=== PATIENT | female | born 1970 | race Two or more races ===

== ENCOUNTER 2017-10-06 16:43 | Emergency (ER) | payer SELFPAY ==
[~2017-10-06] VITALS: Ht 177.8 cm; Wt 89.8 kg
[~2017-10-06 16:43] MED LIST: AMOXICILLIN 50500 MG PO; BACTRIM DS 8001 TAB PO; CIPRO 500MG TA500 MG PO; NOMEDS; PRENATAL1 TA1 PO
--- OUTSIDE RECORDS SUMMARY | 2017-10-06 17:06 | External Medical Summary Rpt | CCD ---
Author Author , FABIEN TRAN Address Unknown Phone [email or web address] Immunization Name Date Rout CVX Reac Dose Comm Prov Is Faci e tion ent ider Refu lity Give sed n Tdap 04-1 115 999 Hist H149 No H149 , 6-20 oric Adso 13 al rbed Info rmat ion - Sour ce Unsp ecif ied
--- OUTSIDE RECORDS SUMMARY | 2017-10-06 17:06 | External Medical Summary Rpt | CCD ---
Author Author , FABIEN TRAN Address Unknown Phone [email or web address] Immunization Name Date Rout CVX Reac Dose Comm Prov Is Faci e tion ent ider Refu lity Give sed n Tdap 04-1 115 999 Hist H149 No H149 , 6-20 oric Adso 13 al rbed Info rmat ion - Sour ce Unsp ecif ied
--- OUTSIDE RECORDS SUMMARY | 2017-10-06 17:07 | External Medical Summary Rpt ---
Author Author MARC Lynn, [employer] Organization [employer] Address Unknown Phone Unavailable Results CHLAMYDIA AND GONORRHEA TESTING Observa Value Referen Units Interpr Notes Date tion ce etation Range COLLECT ALLAN/GENP No No No No Sep 09 OR ROBE informa informa informa informa 2016 tion in tion in tion in tion in 9:00 AM source source source source data data data data ETHNICI HISPANI No No No No Sep 09 TY C WHITE informa informa informa informa 2016 tion in tion in tion in tion in 9:00 AM source source source source data data data data KIT 11-30-2 No No No No Sep 09 EXPIRAT 016 informa informa informa informa 2016 ION tion in tion in tion in tion in 9:00 AM DATE source source source source data data data data SYMPTOM YES No No No No Sep 09 S informa informa informa informa 2016 tion in tion in tion in tion in 9:00 AM source source source source data data data data REASON CANCER No No No No Sep 09 FOR informa informa informa informa 2016 REQUEST tion in tion in tion in tion in 9:00 AM source source source source data data data data SPECIME FEMALE No No No No Sep 09 N ENDOCER informa informa informa informa 2016 SOURCE VICAL tion in tion in tion in tion in 9:00 AM source source source source data data data data PREGNAN NO No No No No Sep 09 T informa informa informa informa 2016 tion in tion in tion in tion in 9:00 AM source source source source data data data data CHART N/A No No No No Sep 09 NUMBER informa informa informa informa 2016 tion in tion in tion in tion in 9:00 AM source source source source data data data data Chlamyd NEGATIV No No No NEGATIV Sep 09 ia E informa informa informa E 2016 trachom tion in tion in tion in RESULT= 9:00 AM atis source source source WITHIN rRNA data data data NORMAL [Presen ce] in LIMITSP Unspeci OSITIVE fied specime RESULT= n by Probe & ABNORMA target LEQUIVO HELGA amplifi RESULT= cation method INDETER MINATEU NSATISF ACTORY RESULT= INVALID Neisser NEGATIV No No No NEGATIV Sep 09 ia E informa informa informa E 2016 gonorrh tion in tion in tion in RESULT= 9:00 AM oeae source source source WITHIN rRNA data data data NORMAL [Presen ce] in LIMITSP Unspeci OSITIVE fied specime RESULT= n by Probe & ABNORMA target LEQUIVO HELGA amplifi RESULT= cation method INDETER MINATEU NSATISF ACTORY RESULT= INVALID THE APTIMA COMBO 2 ASSAY IS NOT INTENDE D FOR THE EVALUAT ION OF SUSPECT EDSEXUA L ABUSE OR FOR OTHER MEDICO- LEGAL INDICAT IONS. FOR THOSE PATIENT S FORWHOM A FALSE POSITIV E RESULT MAY HAVE ADVERSE PSYCHO- SOCIAL IMPACT, [facility].\.br \This report contain s patient informa tion that must be protect ed in accorda nce with the Health Insuran ce Portabi lity and Account ability Act. CHLAMYDIA AND GONORRHEA TESTING Observa Value Referen Units Interpr Notes Date tion ce etation Range COLLECT ALLAN/GENP No No No No Sep 09 OR ROBE informa informa informa informa 2016 tion in tion in tion in tion in 9:00 AM source source source source data data data data ETHNICI HISPANI No No No No Sep 09 TY C WHITE informa informa informa informa 2016 tion in tion in tion in tion in 9:00 AM source source source source data data data data KIT 11-30-2 No No No No Sep 09 EXPIRAT 016 informa informa informa informa 2016 ION tion in tion in tion in tion in 9:00 AM DATE source source source source data data data data SYMPTOM YES No No No No Sep 09 S informa informa informa informa 2016 tion in tion in tion in tion in 9:00 AM source source source source data data data data REASON CANCER No No No No Sep 09 FOR informa informa informa informa 2016 REQUEST tion in tion in tion in tion in 9:00 AM source source source source data data data data SPECIME FEMALE No No No No Sep 09 N ENDOCER informa informa informa informa 2016 SOURCE VICAL tion in tion in tion in tion in 9:00 AM source source source source data data data data PREGNAN NO No No No No Sep 09 T informa informa informa informa 2016 tion in tion in tion in tion in 9:00 AM source source source source data data data data CHART N/A No No No No Sep 09 NUMBER informa informa informa informa 2016 tion in tion in tion in tion in 9:00 AM source source source source data data data data Chlamyd Pending No No No No Sep 09 ia informa informa informa informa 2016 trachom tion in tion in tion in tion in 9:00 AM atis source source source source rRNA data data data data [Presen ce] in Unspeci fied specime n by Probe & target amplifi cation method Neisser Pending No No No \.br\Sep 09 ia informa informa informa is 2016 gonorrh tion in tion in tion in report 9:00 AM oeae source source source contain rRNA data data data s [Presen patient ce] in Unspeci informa fied tion specime that n by must be Probe & target protect ed in amplifi accorda cation nce method with the Health Insuran ce Portabi lity and Account ability Act. CHLAMYDIA AND GONORRHEA TESTING Observa Value Referen Units Interpr Notes Date tion ce etation Range COLLECT NA No No No No March 23 OR informa informa informa informa 2011 tion in tion in tion in tion in 10:50 source source source source AM data data data data ETHNICI HISPANI No No No No March 23 TY C WHITE informa informa informa informa 2012 tion in tion in tion in tion in 10:50 source source source source AM data data data data KIT 7--12 No No No No March 23 EXPIRAT informa informa informa informa 2012 ION tion in tion in tion in tion in 10:50 DATE source source source source AM data data data data SYMPTOM NO No No No No March 23 S informa informa informa informa 2012 tion in tion in tion in tion in 10:50 source source source source AM data data data data REASON REVISIT No No No No March 23 FOR /ANNUAL informa informa informa informa 2012 REQUEST FAMILY tion in tion in tion in tion in 10:50 source source source source AM PLANNIN data data data data G VISIT SPECIME FEMALE No No No No March 23 N ENDOCER informa informa informa informa 2012 SOURCE VICAL tion in tion in tion in tion in 10:50 source source source source AM data data data data PREGNAN NO No No No No March 23 T informa informa informa informa 2012 tion in tion in tion in tion in 10:50 source source source source AM data data data data CHART NA No No No No March 23 NUMBER informa informa informa informa 2012 tion in tion in tion in tion in 10:50 source source source source AM data data data data Chlamyd NEGATIV No No No NEGATIV March 23 ia E informa informa informa E 2012 trachom tion in tion in tion in RESULT= 10:50 atis source source source WITHIN AM rRNA data data data NORMAL [Presen ce] in LIMITSP Unspeci OSITIVE fied specime RESULT= n by Probe & ABNORMA target LEQUIVO HELGA amplifi RESULT= cation method INDETER MINATEU NSATISF ACTORY RESULT= INVALID Neisser NEGATIV No No No NEGATIV March 23 ia E informa informa informa E 2012 gonorrh tion in tion in tion in RESULT= 10:50 oeae source source source WITHIN AM rRNA data data data NORMAL [Presen ce] in LIMITSP Unspeci OSITIVE fied specime RESULT= n by Probe & ABNORMA target LEQUIVO HELGA amplifi RESULT= cation method INDETER MINATEU NSATISF ACTORY RESULT= INVALID EFFECTI VE NOVEMBE R [id number]: THE APTIMA COMBO 2 NUCLEIC ACIDAMP LIFICAT ION ASSAY IS NOT INTENDE D FOR THE EVALUAT ION OFSUSPE CTED SEXUAL ABUSE OR FOR OTHER MEDICO- LEGAL INDICAT IONS.FA LSE POSITIV E RESULTS ARE POSSIBL E.\.br\ This report contain s patient informa tion that must be protect ed in sed[place]a nce with the Health Insuran ce Portabi lity and Account ability Act. CHLAMYDIA AND GONORRHEA TESTING Observa Value Referen Units Interpr Notes Date tion ce etation Range COLLECT NA No No No No March 23 OR informa informa informa informa 2012 tion in tion in tion in tion in 10:50 source source source source AM data data data data ETHNICI HISPANI No No No No March 23 TY C WHITE informa informa informa informa 2012 tion in tion in tion in tion in 10:50 source source source source AM data data data data KIT 7-31-12 No No No No March 23 EXPIRAT informa informa informa informa 2012 ION tion in tion in tion in tion in 10:50 DATE source source source source AM data data data data SYMPTOM NO No No No No March 23 S informa informa informa informa 2012 tion in tion in tion in tion in 10:50 source source source source AM data data data data REASON REVISIT No No No No March 23 FOR /ANNUAL informa informa informa informa 2012 REQUEST FAMILY tion in tion in tion in tion in 10:50 source source source source AM PLANNIN data data data data G VISIT SPECIME FEMALE No No No No March 23 N ENDOCER informa informa informa informa 2012 SOURCE VICAL tion in tion in tion in tion in 10:50 source source source source AM data data data data PREGNAN NO No No No No March 23 T informa informa informa informa 2012 tion in tion in tion in tion in 10:50 source source source source AM data data data data CHART NA No No No No March 23 NUMBER informa informa informa informa 2012 tion in tion in tion in tion in 10:50 source source source source AM data data data data Chlamyd Pending No No No No March 23 ia informa informa informa informa 2012 trachom tion in tion in tion in tion in 10:50 atis source source source source AM rRNA data data data data [Presen ce] in Unspeci fied specime n by Probe & target amplifi cation method Neisser Pending No No No \.br\March 23 ia informa informa informa is 2012 gonorrh tion in tion in tion in report 10:50 oeae source source source contain AM rRNA data data data s [Presen patient ce] in Unspeci informa fied tion specime that n by must be Probe & target protect ed in amplifi accorda cation nce method with the Health Insuran ce Portabi lity and Account ability Act. CHLAMYDIA AND GONORRHEA TESTING Observa Value Referen Units Interpr Notes Date tion ce etation Range COLLECT NA No No No No Dec 09 OR informa informa informa informa 2012 tion in tion in tion in tion in 1:11 PM source source source source data data data data ETHNICI HISPANI No No No No Dec 09 TY C WHITE informa informa informa informa 2012 tion in tion in tion in tion in 1:11 PM source source source source data data data data KIT 3-31-12 No No No No Dec 09 EXPIRAT informa informa informa informa 2012 ION tion in tion in tion in tion in 1:11 PM DATE source source source source data data data data SYMPTOM NO No No No No Dec 09 S informa informa informa informa 2012 tion in tion in tion in tion in 1:11 PM source source source source data data data data REASON REVISIT No No No No Dec 09 FOR /ANNUAL informa informa informa informa 2012 REQUEST FAMILY tion in tion in tion in tion in 1:11 PM source source source source PLANNIN data data data data G VISIT SPECIME FEMALE No No No No Dec 09 N ENDOCER informa informa informa informa 2012 SOURCE VICAL tion in tion in tion in tion in 1:11 PM source source source source data data data data PREGNAN NO No No No No Dec 09 T informa informa informa informa 2012 tion in tion in tion in tion in 1:11 PM source source source source data data data data CHART NA No No No No Dec 09 NUMBER informa informa informa informa 2012 tion in tion in tion in tion in 1:11 PM source source source source data data data data Chlamyd NEGATIV No No No NEGATIV Dec 09 ia E informa informa informa E 2012 trachom tion in tion in tion in RESULT= 1:11 PM atis source source source WITHIN rRNA data data data NORMAL [Presen ce] in LIMITSP Unspeci OSITIVE fied specime RESULT= n by Probe & ABNORMA target LEQUIVO HELGA amplifi RESULT= cation method INDETER MINATEU NSATISF ACTORY RESULT= INVALID Neisser NEGATIV No No No NEGATIV Dec 09 ia E informa informa informa E 2011 gonorrh tion in tion in tion in RESULT= 1:11 PM oeae source source source WITHIN rRNA data data data NORMAL [Presen ce] in LIMITSP Unspeci OSITIVE fied specime RESULT= n by Probe & ABNORMA target LEQUIVO HELGA amplifi RESULT= cation method INDETER MINATEU NSATISF ACTORY RESULT= INVALID EFFECTI VE NOVEMBE R 2009: THE APTIMA COMBO 2 NUCLEIC ACIDAMP LIFICAT ION ASSAY IS NOT INTENDE D FOR THE EVALUAT ION OFSUSPE CTED SEXUAL ABUSE OR FOR OTHER MEDICO- LEGAL INDICAT IONS.FA LSE POSITIV E RESULTS ARE POSSIBL E.\.br\ This report contain s patient informa tion that must be protect ed in accorda nce with the Health Insuran ce Portabi lity and Account ability Act. CHLAMYDIA AND GONORRHEA TESTING Observa Value Referen Units Interpr Notes Date tion ce etation Range COLLECT NA No No No No Dec 09 OR informa informa informa informa 2011 tion in tion in tion in tion in 1:11 PM source source source source data data data data ETHNICI HISPANI No No No No Dec 09 TY C WHITE informa informa informa informa 2012 tion in tion in tion in tion in 1:11 PM source source source source data data data data KIT 3-31-12 No No No No Dec 09 EXPIRAT informa informa informa informa 2012 ION tion in tion in tion in tion in 1:11 PM DATE source source source source data data data data SYMPTOM NO No No No No Dec 09 S informa informa informa informa 2012 tion in tion in tion in tion in 1:11 PM source source source source data data data data REASON REVISIT No No No No Dec 09 FOR /ANNUAL informa informa informa informa 2012 REQUEST FAMILY tion in tion in tion in tion in 1:11 PM source source source source PLANNIN data data data data G VISIT SPECIME FEMALE No No No No Dec 09 N ENDOCER informa informa informa informa 2012 SOURCE VICAL tion in tion in tion in tion in 1:11 PM source source source source data data data data PREGNAN NO No No No No Dec 09 T informa informa informa informa 2012 tion in tion in tion in tion in 1:11 PM source source source source data data data data CHART NA No No No No Dec 09 NUMBER informa informa informa informa 2012 tion in tion in tion in tion in 1:11 PM source source source source data data data data Chlamyd Pending No No No No Dec 09 ia informa informa informa informa 2012 trachom tion in tion in tion in tion in 1:11 PM atis source source source source rRNA data data data data [Presen ce] in Unspeci fied specime n by Probe & target amplifi cation method Neisser Pending No No No \.br\Dec 09 ia informa informa informa is 2012 gonorrh tion in tion in tion in report 1:11 PM oeae source source source contain rRNA data data data s [Presen patient ce] in Unspeci informa fied tion specime that n by must be Probe & target protect ed in amplifi accorda cation nce method with the Health Insuran ce Portabi lity and Account ability Act.
--- OUTSIDE RECORDS SUMMARY | 2017-10-06 17:07 | External Medical Summary Rpt ---
[...] MAY HAVE ADVERSE PSYCHO- SOCIAL IMPACT, [facility] NG.\.br \This report contain s [...] tion that must be protect ed in ortleya nce with the Health Insuran ce Portabi [...]
--- NOTE | 2017-10-06 17:20 | Urgent Treatment Center Report ---
History of Present Issue Visit Reason Pt arrived:Walked Presenting Problem:LEFT SIDE PAIN THAT HAS BEEN ONGOING FOR MONTHS. PAIN WITH URINATION Location if Accident: Onset of symptoms date/time:/ or onset unknown for:MEDICAL HX UNKNOWN Have you (or family members/close friends) recently traveled outside the [place]? N If Yes, where/when: Have you had exposure to infectious disease within the past month? TB? Other? Specify: Patient is , with limited [place]ian state that she has been having problems on and off for several months that has come and gone and also now having pain with urination State that pain is worse right now. Pain is in lower abdomen on left side and radiates up abdomen into back area States that pain has been on and off for about 3-4 months per her . State that today she decided to come in and get checked ALLERGIES Coded Allergies: No Known Allergies (08/15/16) Home Medications Active Scripts Ciprofloxacin HCl (Cipro 500MG TAB) 500 MG PO BID #14 TAB Prov: 08/15/16 Reported Medications No Home Medications (NO HOME MEDICATIONS) History Medical History General CAD? No Angina: No PR: No Hypertension? No Hyperlipidemia? Yes CHF? No DVT? No PE? No COPD? No Asthma? No Anemia? No GERD? No Gastric ulcers? No GI Bleed? No Hernia? No Thyroid Problems? No Hypothyroidism? No CVA? No Seizures? No Diabetes? No Renal Insuffiency? No UTI? No Stones? No BPH? No GB Disease: No Nephritic Syndrome? No Asplenia? No Hepatitis? No Sickle Cell Disease? No Arthritis? No Migraines? No Cataracts? No Glaucoma? No MRSA? No HIV? No TB? No Anxiety? No Depression? No Cancer? No Immunization HX DT/Tetanus UNKNOWN Surgical Hx Previous Surgery?Y Family History Family HX Diabetes No CAD No Hypertension No Hyperlipidemia No Cancer No TB No Social History Smoking Hx Smoker: Never Smoker Tobacco: No Alcohol Alcohol: No Review of Systems All Other Systems Reviewed and Negative Gastrointestinal abdominal pain, denies diarrhea, denies nausea, denies vomiting Genitourinary dysuria, pain. Physical Exam Vital Signs Vital Signs Date Time Temp Pulse Resp B/P Pulse O2 O2 Flow FiO2 Ox Delivery Rate 10/06 1652 98.5 78 18 156/83 98 10/06 1648 98.5 78 18 156/83 98 General Appearance normal appearance, WD/WN, no apparent distress Ear, Nose, Throat hearing grossly normal, normal ENT inspection Respiratory Status Yes: trachea midline, chest symmetrical, non tender chest. No: respiratory distress. Lung Sounds bilateral: normal breath sounds, lungs clear. Cardiovascular normal exam, regular rate/rhythm, no peripheral edema, no gallop Gastrointestinal normal bowel sounds, normal exam, non tender, soft, no guarding , no rebound Back normal inspection, no CVA tenderness, no vertebral tenderness, bowel/ bladder continent, gait normal Neurologic alert, normal exam, oriented x 3 Medical Decision Making LABS/Meds/Orders Pt receiving controlled substance in ED? No Results/Orders Laboratory Tests 10/06/17 1725: Urine Color YELLOW, Urine Appearance Clear, Urine pH 6.0, Ur Specific [place] 1.010, Urine Protein NEGATIVE, Urine Ketones NEGATIVE, Urine Blood NEGATIVE, Urine Nitrate NEGATIVE, Urine Bilirubin NEGATIVE, Urine Urobilinogen 0.2, Ur Leukocyte Esterase NEGATIVE, Urine Glucose NEGATIVE Orders Procedure Date/time Status [facility] URINE DIPSTICK 10/06 172 Complete Progress [facility] Progress Notes Comment Patient complaining of pain in her lower abdominal area. Patient states that pain is constant in lower abdomen, Urine test completed and in chart, Patient being transfered to ER for further evaluation and treatment of abdominal pain. Report called and patient placed in room 11. Departure Departure Time of Disposition 173 Disposition Still a Patient Clinical Impression Primary Impression: Abdominal pain Qualifiers: Abdominal location: left lower quadrant Qualified Code: R10.32 - Left lower quadrant pain Condition STABLE at 1736
--- NOTE | 2017-10-06 17:20 | Urgent Treatment Center Report ---
History of Present Issue Visit Reason Pt arrived:Walked Presenting Problem:LEFT SIDE PAIN THAT HAS BEEN ONGOING FOR MONTHS. PAIN WITH URINATION Location if Accident: Onset of symptoms date/time:/ or onset unknown for:MEDICAL HX UNKNOWN Have you (or family members/close friends) recently traveled outside the [place]? N If Yes, where/when: Have you had exposure to infectious disease within the past month? TB? Other? Specify: Patient is , with limited Italian state that she has been having problems on and off for several months that has come and gone and also now having pain with urination State that pain is worse right now. Pain is in lower abdomen on left side and radiates up abdomen into back area States that pain has been on and off for about 3-4 months per her . State that today she decided to come in and get checked ALLERGIES Coded Allergies: No Known Allergies (08/15/16) Home Medications Active Scripts Ciprofloxacin HCl (Cipro 500MG TAB) 500 MG PO BID #14 TAB Prov: 08/15/16 Reported Medications No Home Medications (NO HOME MEDICATIONS) History Medical History General CAD? No Angina: No NV: No Hypertension? No Hyperlipidemia? Yes CHF? No DVT? No PE? No COPD? No Asthma? No Anemia? No GERD? No Gastric ulcers? No GI Bleed? No Hernia? No Thyroid Problems? No Hypothyroidism? No CVA? No Seizures? No Diabetes? No Renal Insuffiency? No UTI? No Stones? No BPH? No GB Disease: No Nephritic Syndrome? No Asplenia? No Hepatitis? No Sickle Cell Disease? No Arthritis? No Migraines? No Cataracts? No Glaucoma? No MRSA? No HIV? No TB? No Anxiety? No Depression? No Cancer? No Immunization HX DT/Tetanus UNKNOWN Surgical Hx Previous Surgery?Y Family History Family HX Diabetes No CAD No Hypertension No Hyperlipidemia No Cancer No TB No Social History Smoking Hx Smoker: Never Smoker Tobacco: No Alcohol Alcohol: No Review of Systems All Other Systems Reviewed and Negative Gastrointestinal abdominal pain, denies diarrhea, denies nausea, denies vomiting Genitourinary dysuria, pain. Physical Exam Vital Signs Vital Signs Date Time Temp Pulse Resp B/P Pulse O2 O2 Flow FiO2 Ox Delivery Rate 10/06 1652 98.5 78 18 156/83 98 10/06 1648 98.5 78 18 156/83 98 General Appearance normal appearance, WD/WN, no apparent distress Ear, Nose, Throat hearing grossly normal, normal ENT inspection Respiratory Status Yes: trachea midline, chest symmetrical, non tender chest. No: respiratory distress. Lung Sounds bilateral: normal breath sounds, lungs clear. Cardiovascular normal exam, regular rate/rhythm, no peripheral edema, no gallop Gastrointestinal normal bowel sounds, normal exam, non tender, soft, no guarding , no rebound Back normal inspection, no CVA tenderness, no vertebral tenderness, bowel/ bladder continent, gait normal Neurologic alert, normal exam, oriented x 3 Medical Decision Making LABS/Meds/Orders Pt receiving controlled substance in ED? No Results/Orders Laboratory Tests 10/06/17 1725: Urine Color YELLOW, Urine Appearance Clear, Urine pH 6.0, Ur Specific Echo 1.010, Urine Protein NEGATIVE, Urine Ketones NEGATIVE, Urine Blood NEGATIVE, Urine Nitrate NEGATIVE, Urine Bilirubin NEGATIVE, Urine Urobilinogen 0.2, Ur Leukocyte Esterase NEGATIVE, Urine Glucose NEGATIVE Orders Procedure Date/time Status [facility] URINE DIPSTICK 10/06 172 Complete Progress [facility] Progress Notes Comment Patient complaining of pain in her lower abdominal area. Patient states that pain is constant in lower abdomen, Urine test completed and in chart, Patient being transfered to ER for further evaluation and treatment of abdominal pain. Report called and patient placed in room 11. Departure Departure Time of Disposition 173 Disposition Still a Patient Clinical Impression Primary Impression: Abdominal pain Qualifiers: Abdominal location: left lower quadrant Qualified Code: R10.32 - Left lower quadrant pain Condition STABLE at 1736
[2017-10-06 17:27] LABS: URINE BILIRUBIN - DIPSTICK NEGATIVE (NEG)
[2017-10-06 17:28] LABS: URINE BLOOD NEGATIVE (NEG)
--- NOTE | 2017-10-06 18:01 | Emergency Room Report ---
History of Present Illness Time Seen by [id number] Presenting Problem in Triage Pt arrived:Walked Presenting Problem:LEFT SIDE PAIN THAT HAS BEEN ONGOING FOR MONTHS. PAIN WITH URINATION Onset of symptoms date/time:/ or onset unknown for:MEDICAL HX UNKNOWN Treatment Prior to Arrival: SENT FROM [facility] FOR FURTHER EVAL [employer] Provided by: NURSE Sepsis Risk Assessment: Temp: 98.5 B/P: 156/83 MAP: 107 Pulse: 78 Resp: 18 Recent fever? N Clinical Suspician of Infection? N Mental Status: 1 - Regular (Normal Baseline) Sepsis Risk:Low Sepsis Risk Have you (or family members/close friends) recently traveled outside the [place]? N If Yes, where/when: Have you had exposure to infectious disease within the past month? N TB? Other? Specify: Patient reports "inflammation" of the LUQ for four months; no changes in BM; no blood from above or below; no sick contacts or recent travel; no night sweats or weight loss; no association with urination; LMP was 09/08/17 and has had BTL. No vaginal d/c. No dysuria or frequency. No blood in urine. No FH GI issues. No previous radiographic studies or surgery. Eating ok. No association with eating. ALLERGIES Coded Allergies: No Known Allergies (08/15/16) Home Medications Reported Medications No Home Medications (NO HOME MEDICATIONS) (Juan COOPER, Elvira Francisco) History Medical History General CAD? No Angina: No [place]: No Hypertension? No Hyperlipidemia? Yes CHF? No DVT? No PE? No COPD? No Asthma? No Anemia? No GERD? No Gastric ulcers? No GI Bleed? No Hernia? No Thyroid Problems? No Hypothyroidism? No CVA? No Seizures? No Diabetes? No Renal Insuffiency? No End Stage Renal Disease? No UTI? No Stones? No BPH? No GB Disease: No Nephritic Syndrome? No Asplenia? No Hepatitis? No Sickle Cell Disease? No Arthritis? No Migraines? No Cataracts? No Glaucoma? No MRSA? No HIV? No TB? No Anxiety? No Depression? No Cancer? 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 (Juan COOPER, Elvira Francisco) Physical Exam Vital Signs Vital Signs Date Time Temp Pulse Resp B/P Pulse O2 O2 Flow FiO2 Ox Delivery Rate 10/06 1738 98.5 78 18 156/83 98 10/06 1652 98.5 78 18 156/83 98 10/06 1648 98.5 78 18 156/83 98 General Appearance normal appearance, WD/WN, no apparent distress Eye Exam - bilateral eye normal exam, bilateral eye PERRL, bilateral eye EOMI Neck normal inspection, non-tender, supple, full range of motion Respiratory Status Yes: trachea midline, chest symmetrical, non tender chest. No: respiratory distress, tender on palpation, use of accessory muscles, pain on inspiration, pain on expiration, productive cough, non productive cough. Lung Sounds bilateral: normal breath sounds, lungs clear. Cardiovascular normal exam, regular rate/rhythm, no peripheral edema, no gallop, no JVD, no murmur, no rub, normal peripheral pulses Gastrointestinal normal bowel sounds, normal exam, non tender (mild tenderness LUQ), soft, no organomegaly, no pulsatile mass, no guarding, no rebound, tenderness Back normal inspection, no CVA tenderness, bowel/bladder continent, gait normal Extremities normal range of motion Strength 5 Upper Ext (L), 5 Upper Ext (R), 5 Lower Ext (L), 5 Lower Ext (R) Neurologic alert, normal exam, no motor/sensory deficits, oriented x 3 Glascow Coma Scale Glascow Coma Scale Response Value EYE response: 4 Spontaneously 4 MOTOR response: 6 OBEYS 6 VERBAL response: 5 Oriented & Converses 5 Total 15 Skin intact, normal color, warm/dry Lymphatic no adenopathy (Juan COOPER, Elvira Francisco) Medical Decision Making LABS/Meds/Orders Pt receiving controlled substance in ED? No Results/Orders Laboratory Tests 10/06/171814: Lipase 152 10/06/171814: Sodium 141, Potassium 3.5, Chloride 104, Carbon Dioxide 27, BUN 5 L, Creatinine 0.6, Estimated Creat Clear 164, Estimated GFR (MDRD) 107, Glucose 128 H, Calcium 9.2, Total Bilirubin 0.2, AST 74 H, ALT 85 H, Alkaline Phosphatase 111 , Total Protein 8.0, Albumin 3.8, Globulin 4.2 H, Albumin/Globulin Ratio 0.9 L , WBC 10.6, RBC 4.66, Hgb 13.1, Hct 39.7, MCV 85.2, RDW 14.1, Plt Count 313, MPV 7.8, Gran % 48.6, Gran # 5.1, Lymphocytes % 41.6, Monocytes % 5.9, Eosinophils % 3.2, Basophils % 0.6, Lymphocytes # 4.4, Monocytes # 0.6, Eosinophils # 0.3, Basophils # 0.1, PUBS MCHC 33.0, MCH 28.1 10/06/17 172: Urine Color YELLOW, Urine Appearance Clear, Urine pH 6.0, Ur Specific Severance 1.010, Urine Protein NEGATIVE, Urine Ketones NEGATIVE, Urine Blood NEGATIVE, Urine Nitrate NEGATIVE, Urine Bilirubin NEGATIVE, Urine Urobilinogen 0.2, Ur Leukocyte Esterase NEGATIVE, Urine Glucose NEGATIVE Current Medication Orders Sig/Leonides Start time Last Medication Dose Route Stop Time Status Admin Iopamidol 75 ML ONCE ONE 10/06 1945 UNV 10/06 IV 10/06 1946 194 Sodium Chloride 10 ML ONCE ONE 10/06 1945 UNV 10/06 IV 10/06 1946 194 Diatrizoate Meglum/ 30 ML ONCE ONE 10/06 1800 DC 10/06 Diatrizoate Sod PO 10/06 180 1824 Sodium Chloride 10 ML PRN PRN 10/06 1800 AC IV 10/07 175 Diatrizoate Meglum/ 0 .STK-MED ONE 10/06 175 DC Diatrizoate Sod .ROUTE Orders Procedure Date/time Status DIET-NOTHING BY MOUTH 10/07 B Active IV SALINE LOCK 10/06 175 Active LIPASE 10/[address] ABD/PELVIS REQ 10/06 1748 Complete CBC WITH AUTO DIFF 10/06 1748 Complete CHEM 12 PROFILE 10/06 1748 Complete UTC URINE DIPSTICK 10/[address] ABD & PELVIS W/ CONTRAST 10/06 UNK Active Progress ED Progress Notes Date 10/06/17 Time 1759 Comment Translation service called due to several different versions of hpi. No urinary sx; reports "swollen left side for four months" and points to LUQ. (Juan COOPERElvira) XRAY/CT/US XRAY/CT/US CT abdomen, pelvis CT interpretation by discussed w/radiologist Time results known: 2009 CT Results abnormal (see report) (Garcia Pemberton MD) Departure Departure Time of Disposition 1999 Clinical Impression Primary Impression: LUQ abdominal pain Condition STABLE Patient Instructions DI for Abdominal Pain-Adult Additional Instructions See family doctor of choice, call for appointment using list provided, follow up in one to two weeks, sooner if not improving. ED Critical Care Critical Care No (Elvira Martinez MD) Departure Disposition DC Home or Self Care(routine) Discharge Counseling Counseled pt/family regarding diagnosis, test results, follow up needs (Garcia Pemberton MD) at 195 at 2010
[2017-10-06 18:33] LABS: HEMOGLOBIN 13.1 g/dL (12.2-16.2); LYMPH # 4.4 K/mm3 (0.7-4.5); LYMPH % 41.6 % (10-50.0)
[2017-10-06 21:00] VITALS: BP 142/78
--- NOTE | 2017-10-07 07:48 | RADIOLOGY REPORT PS360 ---
CT ABD PELVIS W/ CONTRAST CLINICAL INDICATION: LUQ PAIN X 4 MOS ORDERING PHYSICIAN: Garcia Pemberton MD PATIENT AGE: 47 years COMPARISON: None TECHNIQUE: Axial images obtained with sagittal and coronal reformats. PROCEDURE: Oral Contrast: Gastroview IV Contrast: 75 mL's of Isovue-370 . FINDINGS: Lower thorax: Small hiatal hernia ABDOMEN: Liver: No masses or biliary dilatation. Gallbladder: Nondistended. No radio opaque stones. Pancreas: No masses or peripancreatic fluid collections. Spleen: Unremarkable. Adrenals: Unremarkable Kidneys/ureters: No masses. No renal calculi. No hydronephrosis. No perinephric fluid collections. No ureteral dilatation or obvious ureteral calculi. Stomach bowel: Nondistended. No obvious mass or thickening. Appendix: No evidence of appendicitis. PELVIS: Reproductive: Unremarkable Bladder: 2.8 x 1.5 cm left ovarian cyst.. Bilateral tubal ligation ABDOMEN & PELVIS: Peritoneum: No abnormal fluid collections. No obvious inflammatory changes. No free air. Lymph nodes: No enlarged lymph nodes apparent. Vasculature: No evidence of abdominal aortic aneurysm. No retroperitoneal hemorrhage evident. Bones: No acute fracture IMPRESSION: No acute abdominal or pelvic findings Left ovarian cyst
== END 2017-10-06 21:00 | disposition home or self-care (01) ==
LOC: ER 16:43 → UTC 16:43 → ER 16:55
PROVIDERS: Emergency Medicine; Nurse Practitioner
DX: N83.202 Unspecified ovarian cyst, left side (principal)
CPT/HCPCS: Q9967